=== PATIENT | female | born 1965 | race Caucasian/White ===

== ENCOUNTER 2018-06-07 17:21 | Emergency (ER) | payer MEDICAID, OTHER ==
[2018-06-07] MEDS: KETOROLAC 30 MG INJ IM (19:52)
== END 2018-06-07 22:09 | disposition home or self-care (01) ==
LOC: FTE 17:21
DX: M54.9 Dorsalgia, unspecified (principal); E11.9 Type 2 diabetes mellitus without complications
CPT/HCPCS: 72100; 81025; 96372; 99284-25